=== PATIENT | male | born 1970 | race Caucasian/White ===

== ENCOUNTER → 2020-10-10 13:46 | Outpatient (CLI) | payer OTHER, SELFPAY ==
--- NOTE | ~2020-10-10 | CT_ITS ---
EXAMINATION: CT diagnostic chest wo con EXAM DATE: 10/10/2020 14:08 INDICATION: Cough and shortness of breath. COVID positive July 2020. TECHNIQUE: Spiral CT of the chest without contrast. Axial, coronal and sagittal images were reviewe d. Coronal maximum intensity pixel images of chest reviewed. The dose-length product (DLP) for this examination was 697.29 mGy-cm. The exposure was tailored according to patient size (auto mA exposur e control), and iterative reconstruction (ASIR) was used as additional dose reduction technique. The re is no prior study for comparison. FINDINGS: Several punctate noncalcified nodules 3 mm or less likely postinfectious. There are no pl eural or pericardial effusions. Tracheobronchial tree is patent. There is no mediastinal, hilar o r axillary lymphadenopathy. There is no pneumothorax. Heart normal in size. There is mild coron luis arterial calcification, arterial sclerosis. Upper abdomen is unremarkable. Thoracic diffuse id iopathic skeletal hyperostosis. IMPRESSION: 1. Several small nodules likely postinfectious. 2. No evidence of interstitial lung disease or acute findings. Reviewed, dictated and finalized at location A.
== END ==
PROVIDERS: PCP Student in an Organized Health Care Education/Training Program; Visit Provider Student in an Organized Health Care Education/Training Program
DX: R05 Cough (principal); R06.02 Shortness of breath; R06.00 Dyspnea, unspecified; R91.8 Other nonspecific abnormal finding of lung field; I25.10 Atherosclerotic heart disease of native coronary artery without angina pectoris; I70.90 Unspecified atherosclerosis; M48.14 Ankylosing hyperostosis [Forestier], thoracic region
CPT/HCPCS: 71250

== ENCOUNTER 2022-09-24 08:22 | Day surgery (SDC) | payer OTHER, SELFPAY ==
[2022-09-07 11:00] VITALS: BMI 34.7
[2022-09-24 08:40] VITALS: BP 148/92; PULSE 83; RESP 16; TEMP 36.6; O2SAT 97
--- NOTE | 2022-09-24 08:49 | P.PNAN_ITS ---
Anes - Initial Pre Proc Eval Procedure: Operation Date: 09/24/22 09:30 Proposed Procedures p Screening Colonoscopy - Ton Reardon MD Date/Time: 09/24/22 08:49 Surgeon: Ton Reardon MD Pre Op Diagnosis: Neoplasm Screening Patient Data Age: 51 Gender: M Height: 1.8 m Weight: 113 kg Allergies Allergy/AdvReac Type Severity Reaction Status Date / Time No Known Allergies Allergy Verified 09/07/22 11:03 Home Medications Medication Instructions Recorded Confirmed Type No Home Medications 09/07/22 09/07/22 History Patient hx anesthesia problems: none Family hx anesthesia problems: none Results Review: All pre-operative results and documents have been reviewed as part of the pre- operative evaluation. [facility] Past Medical History Medical History (Updated 09/24/22 @ 08:50 by Pablito Walker MD) EVE (obstructive sleep apnea) Social History Social History Smoking status: Never smoker Alcohol intake: current Substance use: never Substance use type: does not use Living arrangements: with family Spiritual care concerns: No Anes - Eval Final PreProcedure Day of Procedure 09/24/22 08:49 Patient weight: obese Heart: regular rate and rhythm Lungs: clear to auscultation Airway: Mallampati scale class II Neurological: alert and oriented Last oral intake: >/= 8 hours ASA classification: III Emergent: no Anesthetic plan: proceed Anesthesia type and monitoring: general GIVS and standard monitoring Results Review: All pre-operative results and documents have been reviewed as part of the pre- operative evaluation. Informed Consent: The patient's anesthetic plan and its attendant risks and benefits were discussed with the patient/family/POA. Questions were solicited and answers provided to the satisfaction of the patient/family/POA.
[2022-09-24] MEDS: LACTATED RINGERS 1,000 ML 150 ML IV CONT (08:54)
--- NOTE | 2022-09-24 09:03 | PM.HPGS ---
History of Present Illness History of Present Illness Consent: Risks, benefits, and alternatives have been discussed and questions answered. Patient agrees to proceed with procedure. Chief complaint: Neoplasm Screening Narrative: Tristan Cruz is a 51 year old male here for first screening colonoscopy Review of Systems Constitutional: Constitutional: Denies headache(s) and Denies weakness Eyes: Eyes: Denies blurry vision ENT: Reports Normal hearing present, Denies headache(s) and Denies neck pain Cardiovascular: Cardiovascular: Denies chest pain and Denies dyspnea Respiratory: Respiratory: Denies dyspnea Gastrointestinal: Gastrointestinal: Reports no additional gastrointestinal complaints Genitourinary: Genitourinary: Denies dysuria Musculoskeletal: Musculoskeletal: Denies neck pain Integumentary/Breasts: Skin/Breast: Denies dry skin Neurologic: Reports Normal hearing present, Denies headache(s) and Denies weakness Psychiatric: Psychiatric: Denies anxiety Endocrine: Endocrine: Denies change in body appearance Hematologic/Lymphatic: Hematologic/Lymphatic: Denies easy bleeding Allergic/Immunologic: Allergic/Immunologic: Denies urticaria PMF Past Medical History Medical History (Updated 09/24/22 @ 09:03 by Ton Reardon MD) Colon cancer screening EVE (obstructive sleep apnea) Social History Social History Smoking status: Never smoker Alcohol intake: current Substance use: never Substance use type: does not use Living arrangements: with family Spiritual care concerns: No Meds Home Medications and Allergies Home Medications Medication Instructions Recorded Confirmed Type No Home Medications 09/07/22 09/24/22 History Allergies Allergy/AdvReac Type Severity Reaction Status Date / Time No Known Allergies Allergy Verified 09/24/22 08:56 Vital Signs Vital Signs - 24 hr 09/24/22 08:40 Temperature 97.8 F Pulse Rate 83 Respiratory Rate 16 Blood Pressure 148/92 H Pulse Oximetry 97 Oxygen Delivery Room Air Exam Const: General: comfortable and no acute distress HENMT: Face/Nose/Sinus: Normal nares present Eyes: General: appearance normal, both eyes and all related structures Neck: Neck: no JVD Resp: Auscultation: clear to auscultation bilaterally Cardio: Rate: regular rate Rhythm: regular rhythm GI: Inspection: non-distended GI Palp: Yes Soft to palpation Skin: General skin exam: normal color Neuro: General: gait normal Speech: normal speech Extrem: General: normal to inspection Psych: Mental Status: mental status grossly normal Assessment and Plan Assessment and plan (1) Colon cancer screening: Code(s): Z12.11 - Encounter for screening for malignant neoplasm of colon Status: Acute Assessment and Plan: colonoscopy
[2022-09-24 09:23] VITALS: BP 163/90; PULSE 85; RESP 16; O2SAT 98
[2022-09-24 09:33] VITALS: BP 134/87; PULSE 81; RESP 16; O2SAT 97
--- NOTE | 2022-09-24 09:36 | SUR.PHASEII ---
PT AWAKE AND ALERT. DENIES PAIN OR NAUSEA. TALKATIVE WITH SPOUSE. REFUSING A DRINK AT THIS TIME.
[2022-09-24 09:43] VITALS: BP 139/89; PULSE 74; RESP 16; O2SAT 97
--- NOTE | 2022-09-24 10:02 | WPDANESPN ---
Anes - Prog Note Post-Op Date/Time: 09/24/22 10:02 Cardiovascular status: normal Respiratory status: normal Airway patency: baseline Mental status: baseline Post-Op hydration status: normal Vital Signs: Last Vital Signs Temp 36.6 C 09/24/22 08:40 Pulse 74 09/24/22 09:43 Resp 16 09/24/22 09:43 BP 139/89 09/24/22 09:43 Pulse Ox 97 09/24/22 09:43 O2 Del Method Room Air 09/24/22 09:43 Pain Score (VAS): 0 I/O: Intake & Output 09/23/22 09/24/22 09/24/22 23:59 07:59 15:59 Intake Total 300 Balance 300 Patient Feedback: Patient satisfied with anesthetic care.
== END 2022-09-24 09:55 | disposition home or self-care (01) ==
PROVIDERS: PCP Student in an Organized Health Care Education/Training Program; Visit Provider Internal Medicine Gastroenterology
PROC: 0DJD8ZZ Inspection of Lower Intestinal Tract, Via Natural or Artificial Opening Endoscopic (ICD-10-PCS; CPT 45378; principal; 2022-09-24 09:30)
DX: Z12.11 Encounter for screening for malignant neoplasm of colon (principal)
CPT/HCPCS: 45378

== ENCOUNTER 2023-07-11 13:33 | Outpatient (CLI) | payer OTHER, SELFPAY ==
--- NOTE | 2023-07-11 13:37 | ECG_ITS ---
Measurements Intervals [place] Rate: 67 P: 20 NV: 159 QRS: -29 QRSD: 102 T: 3 QT: 366 QTc: 386 Interpretive Statements SINUS RHYTHM VENTRICULAR PREMATURE COMPLEX VOLTAGE CRITERIA FOR LVH POOR R WAVE PROGRESSION, ANTERIOR LEADS BORDERLINE T WAVE ABNORMALITY- ANT/INF LEADS BASELINE ARTIFACT- I, II, AVR BORDERLINE ECG NO PREVIOUS ECG AVAILABLE FOR COMPARISON Electronically Signed On 07-11-2023 13:58:22 BIOMETRICS TECHNICIAN by Artis Young D.O.
== END 2023-07-11 13:34 | disposition home or self-care (01) ==
LOC: ANHSURGERY 13:36
PROVIDERS: PCP Student in an Organized Health Care Education/Training Program; Visit Provider Surgery
DX: Z01.818 Encounter for other preprocedural examination (principal); E78.00 Pure hypercholesterolemia, unspecified
CPT/HCPCS: 93005

== ENCOUNTER 2023-07-18 03:34 | Day surgery (SDC) | payer OTHER, SELFPAY ==
[2023-07-11 09:41] VITALS: BMI 36.9
--- NOTE | 2023-07-11 09:45 | PC.NURSE ---
Report to the Outpatient Waiting Room, entrance under the green pavilion located off [facility], at time 6:30 on date 07/18/23. Planned Procedure Time: 8:30. Time changes happen often and if your time is changed the preop area will call you the afternoon before. - You and your visitor will be asked to self-screen and do not enter if you have any COVID symptoms. - A mask is optional within the hospital at this time. Patients may have clear liquids (water, carbonated beverages, clear teas, apple juice) until 3 hours prior to surgery (5:30) with a maximum of 20 ounces. - No food from midnight until time of surgery Take the following medications with a SIP of water the morning of surgery: NONE DO NOT STOP ANY OF YOUR OTHER PRESCRIPTION MEDICATIONS PRIOR TO SURGERY ?EXCEPT THE FOLLOWING Medications to discontinue per physician: VITAMINS/SUPPLEMENTS Date to take last dose: 07/14/23 Please no make-up, nail south african, hairspray, perfume, deodorant, or body powder the day of surgery. No jewelry (including any body piercings) or valuables the day of surgery, leave them at home. Please take a shower or bath the night before, or the morning of, surgery with an antibacterial soap. Wear comfortable, loose fitting clothing. - Jewelry must be removed prior to entering the operating room. Rings and piercings that are not removed may be cut off. - The hospital will not accept responsibility for valuables. - Please leave all valuables, including medications, at home the day of surgery. If you are going home after surgery, a licensed parts delivery driver must drive you home. - NO public transportation without another adult if you receive anesthesia. - We recommend that an adult stay with you for 24 hours following discharge. - We also recommend that you do not drive, make important decision, drink alcoholic beverages, or take any drugs that were not prescribed by your health care provider for at least 24 hours after your discharge time. Follow any additional instructions given to you from your surgeon. If you or anyone in your household have experienced Covid symptoms in the past week, please notify your surgeon or the nurse liaison at the phone number below for possible testing. Telephone instructions given to PT - ISABEL GAXIOLA and asked if any additional questions and then verbalized understanding. Patient advised to call surgeon office or pre surgery nurse liaison [phone] if any additional questions.
--- NOTE | 2023-07-17 13:20 | P.PNAN_ITS ---
Anes - Initial Pre Proc Eval Procedure: Operation Date: 07/18/23 08:30 Proposed Procedures p Open Umbilical Hernia Repair with Mesh - Jennifer Stone MD Date/Time: 07/17/23 13:20 Surgeon: Jennifer Stone MD Pre Op Diagnosis: Umbilical Hernia, gerd Patient Data Age: 52 Gender: M Height: 1.8 m Weight: 120.2 kg Allergies Allergy/AdvReac Type Severity Reaction Status Date / Time No Known Allergies Allergy Verified 07/11/23 09:39 Home Medications Medication Instructions Recorded Confirmed Type omeprazole 20 mg capsule,delayed 20 mg PO DAILY PRN gerd 07/02/23 07/11/23 History release rosuvastatin 5 mg tablet 5 mg PO DAILY 07/02/23 07/11/23 History triamcinolone acetonide 0.1 % 1 applic topical BID PRN Rash 07/02/23 07/11/23 History topical cream cholecalciferol (vitamin D3) 50 50 mcg PO DAILY 07/11/23 07/11/23 History mcg (2,000 unit) tablet (Vitamin D3) Patient hx anesthesia problems: none Family hx anesthesia problems: none Results Review: All pre-operative results and documents have been reviewed as part of the pre- operative evaluation. [facility] Past Medical History Medical History Colon cancer screening GERD (gastroesophageal reflux disease) High cholesterol EVE (obstructive sleep apnea) Surgical History Surgical History No pertinent past surgical history Family History Family History Other Breast cancer Carcinoma of colon Heart disease Social History Social History Smoking status: Never smoker Alcohol intake: current Drinks per week: 6 Substance use: never Substance use type: does not use Living arrangements: with family Occupation/Education: unemployed Spiritual care concerns: No Anes - Eval Final PreProcedure Day of Procedure 07/17/23 13:20 Patient weight: obese Heart: regular rate and rhythm Lungs: clear to auscultation Airway: Mallampati scale class II Neurological: alert and oriented Last oral intake: >/= 8 hours ASA classification: III Emergent: no Anesthetic plan: proceed Anesthesia type and monitoring: general ETT and standard monitoring Results Review: All pre-operative results and documents have been reviewed as part of the pre- operative evaluation. Informed Consent: The patient's anesthetic plan and its attendant risks and benefits were discussed with the patient/family/POA. Questions were solicited and answers provided to the satisfaction of the patient/family/POA.
[2023-07-18] VITALS (7 sets, daily range): BP systolic 130–154; BP diastolic 74–90; PULSE 63–88; RESP 12–17; TEMP 36.4–36.6; O2SAT 94–100
[2023-07-18] MEDS: LACTATED RINGERS 1,000 ML 30 ML IV CONT ×2 (07:00→09:40)
[2023-07-18] MEDS: KETOROLAC 15 MG/ML VIAL (*BKC) IV PUSH (07:00)
[2023-07-18] MEDS: ACETAMINOPHEN 500 MG TABLET 1000 MG PO (07:00)
--- NOTE | 2023-07-18 07:29 | WPDHPUPDATE1 ---
History and Physical Update Update Date/Time: 07/18/23 07:29 History and Physical has been reviewed, including an updated exam of the patient. There are NO changes in the patient's condition. Risks, benefits, and alternatives have been discussed and questions answered. Patient agrees to proceed with procedure.
[2023-07-18] MEDS: ceFAZolin 3 GM/D5W 100 ML 100 ML IVPB (08:57)
[2023-07-18] MEDS: BUPIVACAINE/EPINEPHRINE 0.5% 30 ML VIAL INFILTRATE (09:11)
--- NOTE | 2023-07-18 09:39 | W.PM.PROC2 ---
Procedure Note - Detailed Date of Procedure 07/18/23 Pre-op Diagnosis Umbilical Hernia Post-op Diagnosis Same Procedure Performed repair of incarcerated umbilical hernia with mesh, defect measuring 3.5 cm Surgeon Jennifer Stone MD Anesthesia General Indications 52 y/o M c incarcerated umbilical hernia Findings incarcerated umbilical hernia c omentum and preperitoneal fat, 3.5 cm defect Description of Procedure The patient was taken to the operating room placed in the supine position. After adequate induction of general anesthesia, the patient was prepped and draped in the normal sterile fashion. A time-out was then done to verify the patient's identity, as well as the procedure being performed. I began by localizing the area around the umbilicus. I then made a curvilinear incision in the infraumbilical fold. This was taken down to level fascia. I then was able to bluntly dissect around the umbilicus. I then carefully dissected the umbilicus off the underlying fascia. I then noted a moderate defect with incarcerated omentum and preperitoneal fat. I was able to mobilize the incarcerated tissue and reduce it back into the abdominal cavity. This left an approximately 3.5 cm defect. I then placed a 6.4 cm round piece of ventralex mesh in the underlay position. This was noted to have good, wide local coverage of the defect. I then closed this defect primarily with interrupted 0 Ethibond suture over the underlay mesh repair. I then reapproximated the umbilicus to the fascia with a 3 0 Vicryl U-stitch. The subcutaneous tissue was then closed with 3 0 Vicryl suture. The skin was closed with 4 0 Monocryl subcuticular suture. Dermabond was then placed on the wound. The patient tolerated the procedure well was extubated in the operating room postop. He will be transferred to the recovery room in stable condition. Implants 6.4 cm ventralex mesh in underlay position Estimated Blood Loss 5 Drains No Packing No Pathology None sent Complications No immediate complications Condition Stable Disposition PACU [facility] Billing Surgery - Charge Forward: Surgery Billing
== END 2023-07-18 11:01 | disposition home or self-care (01) ==
PROVIDERS: PCP Student in an Organized Health Care Education/Training Program; Visit Provider Surgery
PROC: (CPT 49594; principal; 2023-07-18 08:30)
DX: K42.9 Umbilical hernia without obstruction or gangrene (principal); K21.9 Gastro-esophageal reflux disease without esophagitis; E78.00 Pure hypercholesterolemia, unspecified; G47.33 Obstructive sleep apnea (adult) (pediatric); E66.9 Obesity, unspecified; Z68.38 Body mass index [BMI] 38.0-38.9, adult; Z82.49 Family history of ischemic heart disease and other diseases of the circulatory system; Z80.0 Family history of malignant neoplasm of digestive organs; Z80.3 Family history of malignant neoplasm of breast
CPT/HCPCS: 49594; 93005; A9270; C1781; J0690; J1100; J1885; J2250; J2405; J2704; J3010; J7120